=== PATIENT | female | born 1960 | race Native Hawaiian/Other Pacific Islander ===

== ENCOUNTER → 2020-12-04 | Outpatient (CLI) | payer BC ==
[2020-12-06 09:10] LABS: HPV 16 Negative (Negative); HPV 18 Negative (Negative); HPV OTHER HR TYPES Negative (Negative)
== END | disposition home or self-care (01) ==
LOC: LAB SHORT 17:49
PROVIDERS: Nurse Practitioner Family
DX: Z01.419 Encounter for gynecological examination (general) (routine) without abnormal findings (principal)
CPT/HCPCS: 87624; G0145

== ENCOUNTER 2023-10-15 09:19 | Day surgery (SDC) | payer BC ==
[2023-10-15] VITALS (15 sets, daily range): BP systolic 101–138; BP diastolic 67–94
[~2023-10-15] VITALS: Ht 161 cm; Wt 52.3 kg
[~2023-10-15 09:19] MED LIST: ALEN70 PO; Lactated Ringer's 1,000 ML IV SCH; VALA500 PO; Vitamin B-12100 MCG PO; Vitamin C100 M1 PO; Vitamin D1000 UNI1 PO
[2023-10-15] MEDS ORDERED: propofoL 40 ML IV ONE (10:03)
--- NOTE | 2023-10-15 10:26 | NUR ---
History, Chart, Medications and Allergies reviewed before start of procedure.Patient confirms NPO status and agrees with scheduled surgery. Patient states colon prep results clear.Lungs clear T/O to Auscultation. Patient States Post-Procedure ride home has been arranged.
--- NOTE | 2023-10-15 10:44 | NUR ---
10/15/23 1044 Rolo Guillermo HISTORY, CHART, MEDICATIONS AND ALLERGIES REVIEWED BEFORE START OF PROCEDURE. PATIENT CONFIRMS NPO STATUS AND AGREES WITH SCHEDULED PROCEDURE. 3-LEAD EKG REVIEWED WITH PHYSICIAN PRIOR TO START OF PROCEDURE. MONITOR INTACT WITH CONTINUOUS PULSE OXIMETRY,CAPNOGRAPHY, 3-LEAD EKG, INTERMITTENT BP. SUPPLEMENTAL O2 TO BE TITRATED THROUGHOUT PROCEDURE TO MAINTAIN O2 SATURATION ABOVE 90%. PATIENT DETERMINED TO BE ASA APPROPRIATE FOR PROPOFOL SEDATION PRIOR TO START OF PROCEDURE BY DR. MORE.
--- NOTE | 2023-10-15 11:45 | NUR ---
Patient up to Ambulate independently. Gait steady. Discharge instructions reviewed with patient. Patient verbalizes understanding. Copy given to patient to take home. Patient States Post-Procedure ride home has been arranged. Discharged via wheelchair to private car for ride home. DENIES PAIN, TOLERATING PO. REPORTS READY TO GO HOME.
== END 2023-10-15 11:45 | disposition home or self-care (01) ==
LOC: ORSCMMR 09:19
PROVIDERS: Internal Medicine Gastroenterology
PROC: 0DBM8ZX Excision of Descending Colon, Via Natural or Artificial Opening Endoscopic, Diagnostic (ICD-10-PCS; principal; 2023-10-15 10:30)
DX: Z12.11 Encounter for screening for malignant neoplasm of colon (principal); D12.4 Benign neoplasm of descending colon; Z83.719 Family history of colon polyps, unspecified; B00.9 Herpesviral infection, unspecified; M81.0 Age-related osteoporosis without current pathological fracture; Z79.899 Other long term (current) drug therapy
CPT/HCPCS: 88305; J2704; J7120